=== PATIENT | female | born 1960 | race Caucasian/White ===

== ENCOUNTER 2021-03-06 17:18 | Emergency (ER) | payer MEDICARE, SELFPAY ==
[2021-03-06] VITALS (10 sets, daily range): BP systolic 66–253; BP diastolic 22–140; PULSE 63–131; RESP 10–45; TEMP 2.9–37.4; O2SAT 32–96; BMI 35.8
[2021-03-06] MEDS: Etomidate 20 MG/10 ML Vial IV (17:28)
[2021-03-06] MEDS: Rocuronium Bromide 50 MG/5 ML Vial 100 MG IV (17:29)
--- NOTE | 2021-03-06 17:30 | CM.ED ---
SOCIAL WORK Code Blue Responded to Code Andrea. No family present, this worker to remain available. Lalita Goss, PRODUCTION MANAGER, SECURITY POLICE OFFICER
--- NOTE | 2021-03-06 17:43 | CT_ITS ---
STUDY: CT BRAIN WITHOUT CONTRAST REASON FOR EXAM: Female, 60 years old. Altered mental status RADIATION DOSAGE (If Supplied By Facility): CTDIvol = ( 44.99 ) mGy, DLP = ( 796.11 ) mGycm TECHNIQUE: Transaxial CT imaging of the brain was performed without administration of intravenous contrast material. Individualized dose optimization techniques were used for this CT. COMPARISON: No relevant priors. FINDINGS: Normal soft tissue structures. Normal calvarium. Normal size ventricles and extra-axial spaces for the patient''s age. Normal white matter tracts of the cerebral hemispheres. Normal basal ganglia and thalami. Normal brainstem. Normal cerebellum. There is no intracranial hemorrhage. There are no findings of an acute ischemic infarction. Normal visualized paranasal sinuses. CT/Brain/Head without Contrast IMPRESSION: No acute intracranial process. Electronically Signed: Sindi Hollis MD at 18:41 EST Tel , Service support ,
--- NOTE | 2021-03-06 17:44 | EKG12_ITS ---
Test Reason : DYSRHYTHMIA Blood Pressure : / mmHG Vent. Rate : 113 BPM Atrial Rate : 113 BPM P-R Int : 130 ms QRS Dur : 098 ms QT Int : 364 ms P-R-T Axes : 026 016 -29 degrees QTc Int : 499 ms Sinus tachycardia with Premature atrial complexes Inferior infarct , age undetermined Abnormal ECG Confirmed by FRITZ GUERIN, BONI ([id number]), editor managing director CARMEN TABARES ([id number]) on 03/08/2021 10:15:01 AM Referred By: Confirmed By:BONI HU MD
--- NOTE | 2021-03-06 17:50 | RAD_ITS ---
STUDY: X-RAY CHEST REASON FOR EXAM: Female, 60 years old. INTUBATION -- #2 TECHNIQUE: Frontal portable view of the chest COMPARISON: Earlier same day FINDINGS: Endotracheal tube has been retracted and is now 1 7 m from the brianne. A radiation is improved. However, there is diffuse bilateral lung disease. Gastric tube has been advanced into the stomach. There is no pneumothorax or effusions. Cardiac size is normal. RAD/Chest 1 View (Portable) IMPRESSION: Repositioning of endotracheal tube, 1 cm from the brianne. Diffuse lung disease, likely pneumonia/ARDS. Electronically Signed: Elizabeth Elias MD at 19:32 EST Tel , Service support ,
--- NOTE | 2021-03-06 17:50 | RAD_ITS ---
STUDY: X-RAY CHEST REASON FOR EXAM: Female, 60 years old. intubation -- #1 TECHNIQUE: Frontal portable view of the chest COMPARISON: None. FINDINGS: Endotracheal tube enters 1.2 cm into the right bronchus. Pulmonary volumes are low. Lungs are diffusely opacified. Gastric tube terminates in the mid esophagus. RAD/Chest 1 View (Portable) IMPRESSION: 1. Endotracheal tube in the right bronchus, recommend retraction by 4 cm. 2. Gastric tube in the mid to distal esophagus. Recommend advancement by 50 cm. 3. Diffuse severe lung disease, likely pulmonary edema/pneumonia. Electronically Signed: Elizabeth Elias MD at 19:24 EST Tel , Service support ,
[2021-03-06] MEDS: 0.9% Normal Saline 1,000 ML 250 ML IV (17:51)
[2021-03-06] MEDS: 0.9% Normal Saline 1,000 ML 1000 ML IV (17:51)
[2021-03-06 17:54] LABS: Hematocrit 52.1 % (37-47); Hemoglobin 16.5 g/dL (12.0-15.0); Mean Corp Hgb Conc 31.7 g/dL (32-36); Mean Corpuscular Hgb 28.9 pg (27.0-32.0); Mean Corpuscular Volume 91.2 fL (81-99); Mean Platelet Vol. 10.7 fl (6.2-12.0); POSITIVE COUNT YES; POSITIVE DIFFERENTIAL YES; POSITIVE MORPHOLOGY YES; Platelet Count 524 K/mm3 (150-450); RBC Distribution Width CV 14.8 % (11.6-14.6); RBC Distribution Width SD 49.7 fl (35.1-43.9); Red Blood Count 5.71 M/mm3 (4.2-5.4); White Blood Count 21.9 K/mm3 (4.4-11.0)
[2021-03-06 17:57] LABS: Bacteria 0 SEEN /hpf (None Seen); Squamous Epithelial Cells - UA 0 SEEN /hpf (5-10); White Blood Cells 0 SEEN /hpf (0-5)
--- NOTE | 2021-03-06 17:57 | CPS ---
critical value on ABG. Dr. Gaines notified of critical value
[2021-03-06 17:58] LABS: Differential Indicated MANUAL DIFF
[2021-03-06 18:01] LABS: Allen Test Positive; Base Excess -13 mmol/L (-2 to +2); Bicarbonate 15.3 mmol/L (22-26); Blood Gas Specimen Type ART; O2 Delivery Device Bagging; PO2 250 mmHG (75-100); SITE R Radial; SO2 100 % (95-99); Total Carbon Dioxide 17 mmol/L; pCO2 42.2 mmHg (35-45); pH 7.17 (7.35-7.45)
[2021-03-06 18:11] LABS: Color, Urine Yellow (Yellow); Glucose, Dipstick Normal (Normal); Ketone-Dipstick 5 mg/dl (Negative); Leukocyte Esterase-Dipstick Negative /ul (Negative); Nitrite-Dipstick Negative (Negative); Occult Blood-Urine 25 /ul (Negative); Protein-Dipstick 100 mg/dl (Negative); Urine Bilirubin Dipstick Negative (Negative); Urine Clarity Clear (Clear); Urine Urobilinogen Normal (Normal)
[2021-03-06 18:11] LABS: Alcohol, Blood (Medical)-Serum < 3.0 mg/dL
[2021-03-06 18:13] LABS: Lactic Acid 8.8 mmol/L (0.4-1.9)
[2021-03-06 18:25] LABS: ALB/GLOB Ratio 0.5 RATIO (0.9-2.4); AST(SGOT) 119 U/L (15-37); Alanine Aminotransfer ALT/SGPT 56 U/L (13-56); Albumin, Serum 2.9 g/dL (3.2-5.0); Alkaline Phosphatase 94 U/L (45-117); Anion Gap 17 (5-15); BUN 99 mg/dL (7-18); BUN/Creat Ratio 25.4 RATIO (10-20); Calcium,Total 9.6 mg/dL (8.5-10.1); Chloride 113 mmol/L (98-107); EST Glomerular Filtration Rate 12 mL/min (>60); Est Glom Filt Rate - Afr Amer 15 mL/min (>60); Estimated Creatinine Clearance 11.83 ml/min; Globulin 6.3 g/dL (2.2-4.2); Glucose 258 mg/dL (74-106); Lipase 220 U/L (73-393); Magnesium 4.3 mg/dL (1.6-2.6); Potassium 3.6 mmol/L (3.5-5.1); Protein, Total 9.2 g/dL (6.4-8.2); Sodium Level 150 mmol/L (136-145); Thyroid Stim Hormone (TSH) 1.18 uIU/mL (0.358-3.74)
[2021-03-06 18:28] LABS: Troponin-I HS 183 pg/mL (3.0-54.0)
[2021-03-06 18:29] LABS: Lymphocyte 23 % (19-41); Metamyelocyte 2 % (0-1); Monocyte 5 % (0-10); Myelocyte 3 % (0-0); Neutrophil-Band 2 % (0-5); Neutrophil-Segmented 65 % (47-70); Total Cells Counted 100 (MANUAL DIFF)
[2021-03-06 18:30] LABS: Absolute Neutrophil Count 14.7 X10^3/uL (2.0-7.7); Platelet Estimate ADEQUATE (ADEQ); Reactive Lymphocyte 1+; Red Cell Morphology NORM C+C NORMAL (NORM C&C)
[2021-03-06 18:31] LABS: Absolute Lymphocyte Count 5.04 X10^3/uL (0.83-4.51)
[2021-03-06 18:37] LABS: Amphetamine Urine VISTA NEGATIVE (<1000 ng/mL); Barbiturate Urine VISTA NEGATIVE (< 200 ng/mL); Benzodiazepine Urine VISTA NEGATIVE (< 200 ng/mL); Cocaine Urine VISTA NEGATIVE (< 300 ng/mL); Ecstacy Urine VISTA NEGATIVE (< 500 ng/mL); Methadone Urine VISTA NEGATIVE (< 300 ng/mL); PCP Urine VISTA NEGATIVE (< 25 ng/mL); THC Urine VISTA NEGATIVE (< 50 ng/mL)
[2021-03-06] MEDS: 0.9% Normal Saline 1,000 ML 999 ML IV (18:37)
[2021-03-06 18:40] LABS: Mucous, Urine 1+ /hpf (<or=2+); Red Blood Cells-Urine 0-5 SEEN /hpf (0-5)
[2021-03-06 18:41] LABS: Vista UDS pH Range 5
[2021-03-06 18:43] LABS: BNP,B-Type NATRIURETIC PEPTIDE 179.7 pg/mL (0-100)
[2021-03-06 18:58] LABS: Prothrombin Time (Protime)PT. 21.5 SECONDS (11.7-14.9)
[2021-03-06 18:59] LABS: Partial Thromboplast Time 43.6 Seconds (24.1-36.2)
--- NOTE | 2021-03-06 19:40 | EX.ED.DYSGE1 ---
HPI History of Present Illness Chief Complaint: Alt LOC Narrative Narrative: 60-year-old female presenting with acute respiratory failure via EMS. Reportedly no one has seen the patient for about 4 days. 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 Please recall the entry of the residents to find her on the couch. Patient has her eyes open and will turn her head yes and no. She can however not speak. She has never been to this facility before [facility] Medical History unable to obtain Allergy/AdvReac Type Severity Reaction Status Date / Time Unable to Assess Allergy Verified 03/06/21 18:28 Family History unable to obtain Surgical History unable to obtain unable to obtain Social History (Updated 03/06/21 @ 19:[address] 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 current gender identity: female Smoking Status: Unknown if ever smoked ROS ROS ED Review of Systems ROS Unobtainable: due to mental status EXAM Physical Exam Narrative Exam Narrative: Patient is in obvious distress Const Vital Signs: 03/06/21 17:19 03/06/21 17:27 03/06/21 17:32 Temperature 96.6 F L 97.6 F L Temperature [2] Temperature [3] Temperature Source Temporal Temporal Pulse Rate 114 H 109 H 63 Pulse Rate [2] Pulse Rate [3] Respiratory Rate 45 H 40 H 18 Respiratory Rate [2] Respiratory Rate [3] Respiratory Effort Respiratory Pattern Blood Pressure 124/79 H 124/79 H 90/43 L Blood Pressure [2] Blood Pressure [3] Blood Pressure Mean 94 94 58 Pulse Ox 67 40 32 Oxygen Delivery Method Non-Rebreather Non-Rebreather Non-Rebreather Fraction of Inspired Oxygen (FIO2) 03/06/21 17:35 03/06/21 17:42 03/06/21 17:49 Temperature Temperature [2] Temperature [3] Temperature Source Pulse Rate 105 H Pulse Rate [2] Pulse Rate [3] Respiratory Rate 10 L Respiratory Rate [2] Respiratory Rate [3] Respiratory Effort Short of Breath Labored Mechanically Ventilated Respiratory Pattern Normal Tachypnea Blood Pressure Blood Pressure [2] Blood Pressure [3] Blood Pressure Mean Pulse Ox 93 Oxygen Delivery Method Mechanical Ventilator Fraction of Inspired Oxygen (FIO2) 100 03/06/21 17:53 03/06/21 17:55 03/06/21 18:01 Temperature 99.1 F 99.2 F H Temperature [2] Temperature [3] Temperature Source Core Core Pulse Rate 131 H 128 H Pulse Rate [2] Pulse Rate [3] Respiratory Rate 36 H 10 L Respiratory Rate [2] Respiratory Rate [3] Respiratory Effort Short of Breath Labored Respiratory Pattern Tachypnea Blood Pressure 139/83 H 128/83 H Blood Pressure [2] Blood Pressure [3] Blood Pressure Mean 101 98 Pulse Ox 80 57 Oxygen Delivery Method Mechanical Ventilator Mechanical Ventilator Fraction of Inspired Oxygen (FIO2) 03/06/21 18:06 03/06/21 18:44 03/06/21 19:00 Temperature 99.4 F H Temperature [2] Temperature [3] Temperature Source Core Pulse Rate 122 H 109 H Pulse Rate [2] Pulse Rate [3] Respiratory Rate 16 14 Respiratory Rate [2] Respiratory Rate [3] Respiratory Effort Respiratory Pattern Blood Pressure 128/93 H 66/44 L Blood Pressure [2] Blood Pressure [3] Blood Pressure Mean 104 51 Pulse Ox 93 Oxygen Delivery Method Mechanical Ventilator Mechanical Ventilator Mechanical Ventilator Fraction of Inspired Oxygen (FIO2) 03/06/21 19:02 03/06/21 19:17 Temperature Temperature [2] 99.0 F 99.0 F Temperature [3] 99.1 F 37.2 F L Temperature Source Pulse Rate Pulse Rate [2] 112 H Pulse Rate [3] 130 H 107 H Respiratory Rate 14 Respiratory Rate [2] 14 Respiratory Rate [3] 14 14 Respiratory Effort Respiratory Pattern Blood Pressure 158/140 H Blood Pressure [2] 158/140 H 150/22 H Blood Pressure [3] 253/113 H 105/68 Blood Pressure Mean Pulse Ox Oxygen Delivery Method Mechanical Ventilator Mechanical Ventilator Fraction of Inspired Oxygen (FIO2) Positive well nourished, well developed and obese General Appearance ED: well developed Nutritional Appearance: obese HEENT Reports normocephalic, head/scalp atraumatic and dry mucous membranes HEENT Narrative: The teeth appear to be stuck together once opened the tongue is stuck to the roof of her mouth. Negative for trauma Mouth ED: Yes dry mucous membranes Mouth: dry mucous membranes Eyes PERRL and EOMs intact bilaterally Eyes Narrative: Patient appears to have exophthalmos Neck no lymphadenopathy, supple and no JVD Resp clear to auscultation bilaterally Resp Narrative: Patient is tachypneic Auscultation: diminished lung sounds Cardio regular rate and no murmurs Rate: tachycardic GI normal to inspection, nondistended, normoactive bowel sounds and non-tender Palpation: soft Back/Spine no CVA tenderness and normal ROM Extremity normal to inspection General Extremety ED: Negative for edema General Extremity: Negative for edema Neuro Neuro Narrative: Patient will wiggle her toes on command and squeeze her her hand with the appropriate side Sensorium / Orientation: alert Skin no rashes or lesions noted and no wounds MDM MDM MDM Narrative Medical decision making narrative: Patient's pulse ox was significantly low with some readings around 13%. Decision to intubate the patient was made immediately the patient underwent RSI using etomidate and rocuronium. The mouth was severely dry necessitating use of some sterile saline to help moisten to visualize the cords. Using the glide scope and 8-0 endotracheal tube was placed and secured at 24 cm. Later this was pulled to 20 cm after looking at the x-ray. After intubation the patient became bradycardic and eventually went to asystole. Epinephrine was administered as well as CPR. This resulted in a sinus tachycardia. Patient was taken to head CT which was negative. My interpretation of the chest x-ray is diffuse pulmonary edema with the endotracheal tube 1 cm above the brianne. White count returns at 21.9 hemoglobin 16.5. Platelet count of 524. BUN of 99 with a creatinine of 3.9. Sodium of 150 troponin 183. Lactic acid is 8.8 pH 7.16 with a PCO2 of 42 and a PO2 of 250 HCO3 15.3. A couple more times the patient became bradycardic and lost her pulse and CPR was started. Please see nurse see documentation for complete details. A right IJ central line was placed using ultrasound guidance and the modified Seldinger technique. This was placed without any difficulty on the first attempt. It was secured in place. Unfortunately the patient coded again before we could get a chest x-ray to prove placement. The patient eventually became bradycardic and lost her pulse and went into asystole. She was pronounced . Later we find out that the patient has been in and Covid quarantine and the patient is test Covid positive. I suspect that the patient was quite sick at home and became significantly hypoxic and dehydrated. Lab Data Attestation: I reviewed the patient's lab results. Labs: Laboratory Results - last 24 hr 03/06/21 03/06/21 03/06/21 17:31 17:31 17:31 WBC 21.9 H RBC 5.71 H Hgb 16.5 H Hct 52.1 H MCV 91.2 MCH 28.9 MCHC 31.7 L RDW Std Deviation 49.7 H RDW Coeff of Black 14.8 H Plt Count 524 H MPV 10.7 Neut % (Auto) Not Reportable Absolute Neuts (auto) 14.7 H Absolute Lymphs (auto) 5.04 H Total Counted 100 Neutrophils % (Manual) 65 Band Neutrophils % 2 Lymphocytes % (Manual) 23 Monocytes % (Manual) 5 Metamyelocytes % 2 H Myelocytes % 3 H Diff Path Review May foll Reactive Lymphocytes 1+ Platelet Estimate ADEQUATE RBC Morphology NORM C+C PT INR APTT Sodium 150 H Potassium 3.6 Chloride 113 H Carbon Dioxide 20.0 L Anion Gap 17 H BUN 99 H Creatinine 3.90 H Estim Creat Clear Calc 11.83 Est GFR (MDRD) Af Amer 15 L Est GFR (MDRD) Non-Af 12 L BUN/Creatinine Ratio 25.4 H Glucose 258 H Lactic Acid Calcium 9.6 Magnesium 4.3 H Total Bilirubin 1.20 H AST 119 H ALT 56 Alkaline Phosphatase 94 Troponin I High Sens 183 H* B-Natriuretic Peptide Total Protein 9.2 H Albumin 2.9 L Globulin 6.3 H Albumin/Globulin Ratio 0.5 L Lipase 220 TSH 1.18 Urine Color Urine Clarity Urine pH Ur Specific [place] Urine Protein Urine Glucose (UA) Urine Ketones Urine Occult Blood Urine Nitrite Urine Bilirubin Urine Urobilinogen Ur Leukocyte Esterase Urine RBC Urine WBC Ur Squamous Epith Cells Urine Bacteria Urine Mucus Urine Opiates Screen Urine Methadone Screen Ur Barbiturates Screen Ur Phencyclidine Scrn Ur Amphetamines Screen U Methamphetamin-MDMA U Benzodiazepines Scrn Urine Cocaine Screen U Cannabinoids Screen Ur Drug Screen Comment Ethyl Alcohol < 3.0 03/06/21 03/06/21 03/06/21 17:31 17:31 17:45 WBC RBC Hgb Hct MCV MCH MCHC RDW Std Deviation RDW Coeff of Black Plt Count MPV Neut % (Auto) Absolute Neuts (auto) Absolute Lymphs (auto) Total Counted Neutrophils % (Manual) Band Neutrophils % Lymphocytes % (Manual) Monocytes % (Manual) Metamyelocytes % Myelocytes % Diff Path Review Reactive Lymphocytes Platelet Estimate RBC Morphology PT INR APTT Sodium Potassium Chloride Carbon Dioxide Anion Gap BUN Creatinine Estim Creat Clear Calc Est GFR (MDRD) Af Amer Est GFR (MDRD) Non-Af BUN/Creatinine Ratio Glucose Lactic Acid 8.8 H* Calcium Magnesium Total Bilirubin AST ALT Alkaline Phosphatase Troponin I High Sens B-Natriuretic Peptide 179.7 H Total Protein Albumin Globulin Albumin/Globulin Ratio Lipase TSH Urine Color Yellow Urine Clarity Clear Urine pH 5.0 Ur Specific [place] 1.020 Urine Protein 100 H Urine Glucose (UA) Normal Urine Ketones 5 H Urine Occult Blood 25 H Urine Nitrite Negative Urine Bilirubin Negative Urine Urobilinogen Normal Ur Leukocyte Esterase Negative Urine RBC 0-5 SEEN Urine WBC 0 SEEN Ur Squamous Epith Cells 0 SEEN Urine Bacteria 0 SEEN Urine Mucus 1+ Urine Opiates Screen Urine Methadone Screen Ur Barbiturates Screen Ur Phencyclidine Scrn Ur Amphetamines Screen U Methamphetamin-MDMA U Benzodiazepines Scrn Urine Cocaine Screen U Cannabinoids Screen Ur Drug Screen Comment Ethyl Alcohol 03/06/21 03/06/21 03/06/21 17:45 18:00 18:40 WBC RBC Hgb Hct MCV MCH MCHC RDW Std Deviation RDW Coeff of Black Plt Count MPV Neut % (Auto) Absolute Neuts (auto) Absolute Lymphs (auto) Total Counted Neutrophils % (Manual) Band Neutrophils % Lymphocytes % (Manual) Monocytes % (Manual) Metamyelocytes % Myelocytes % Diff Path Review Reactive Lymphocytes Platelet Estimate RBC Morphology PT Cancelled 21.5 H INR Cancelled 2.0 APTT Cancelled 43.6 H Sodium Potassium Chloride Carbon Dioxide Anion Gap BUN Creatinine Estim Creat Clear Calc Est GFR (MDRD) Af Amer Est GFR (MDRD) Non-Af BUN/Creatinine Ratio Glucose Lactic Acid Calcium Magnesium Total Bilirubin AST ALT Alkaline Phosphatase Troponin I High Sens B-Natriuretic Peptide Total Protein Albumin Globulin Albumin/Globulin Ratio Lipase TSH Urine Color Urine Clarity Urine pH Ur Specific [place] Urine Protein Urine Glucose (UA) Urine Ketones Urine Occult Blood Urine Nitrite Urine Bilirubin Urine Urobilinogen Ur Leukocyte Esterase Urine RBC Urine WBC Ur Squamous Epith Cells Urine Bacteria Urine Mucus Urine Opiates Screen NEGATIVE Urine Methadone Screen NEGATIVE Ur Barbiturates Screen NEGATIVE Ur Phencyclidine Scrn NEGATIVE Ur Amphetamines Screen NEGATIVE U Methamphetamin-MDMA NEGATIVE U Benzodiazepines Scrn NEGATIVE Urine Cocaine Screen NEGATIVE U Cannabinoids Screen NEGATIVE Ur Drug Screen Comment Ethyl Alcohol ABG Data ABG results: ABG 03/06/21 17:57 Specimen Type ART Sample Site R Radial pH 7.17 L* Bicarbonate Actual 15.3 L Total CO2 17 Base Excess -13 L O2 Saturation 100 H ABG pCO2 42.2 ABG pO2 250 H Walter Test Positive O2 Delivery Device Bagging Liter Flow 15.0 Crit Call To/Read Back Yes Radiography Diagnostic Testing: Clinical Impression(s) from Imaging Studies Brain CT 03/06/21 17:43 IMPRESSION: No acute intracranial process. Electronically Signed: Sindi Hollis MD at 18:41 EST Tel , Service support , Chest X-Ray 03/06/21 17:50 IMPRESSION: 1. Endotracheal tube in the right bronchus, recommend retraction by 4 cm. 2. Gastric tube in the mid to distal esophagus. Recommend advancement by 50 cm. 3. Diffuse severe lung disease, likely pulmonary edema/pneumonia. Electronically Signed: Elizabeth Elias MD at 19:24 EST Tel , Service support , Chest X-Ray 03/06/21 17:50 IMPRESSION: Repositioning of endotracheal tube, 1 cm from the brianne. Diffuse lung disease, likely pneumonia/ARDS. Electronically Signed: Elizabeth Elias MD at 19:32 EST Tel , Service support , EKG Initial EKG: Attestation: I personally reviewed and interpreted this EKG as follows: Comments: Sinus tachycardia with a ventricular rate of 113 bpm noted PACs Critical Care Time Critical Care Time: Yes Critical care time (excluding procedures): 30-74 minutes (35 min), Including time spent:, Discussing w/Patient &/or Family/Signal Worker Helper and Performing Direct Patient Care at Bedside Discharge Plan Triage Chief Complaint: Alt LOC ED Provider: Francisco Gaines Dx/Rx/DC Orders Clinical Impression: Acute hypoxemic respiratory failure, Cardiac arrest, Metabolic acidosis, COVID-19, Acute renal failure, Acute dehydration Primary Care Provider: Care Physician,No Primary Referrals: Care Physician,No Primary [Primary Care Provider] - Disposition Disposition: Discharge Date/Time: 03/06/21 21:03 Date/Time: 03/06/21 19:43
--- NOTE | 2021-03-06 19:45 | CM.ED ---
Patient . Call to patient's friend, Ana Marshall to obtain information on family. Ana reports was a student of patient's and believes patient to have a brother and sister who reside in [place]. Ana states believes brother's name to be Gopi Schmid who resides in [facility]. Staff and HRO Rolando trevizo. Lalita Goss, ASSEMBLER STEAM AND GAS [employer]URBINE, INSURANCE FOLLOW UP REP
--- NOTE | 2021-03-06 20:43 | ED.RN ---
time of [address]. called [address] Dr[address] Gaines. lin manzano rn
[2021-03-06 21:48] LABS: Reflex Lactate? Y
[2021-03-09 09:30] LABS: Pathologist Review Reviewed
== END 2021-03-06 21:03 ==
PROVIDERS: Emergency Provider Emergency Medicine
DX: U07.1 COVID-19 (principal); J96.01 Acute respiratory failure with hypoxia; I46.9 Cardiac arrest, cause unspecified; E86.0 Dehydration; N17.9 Acute kidney failure, unspecified; E87.2 Acidosis
CPT/HCPCS: 31500; 36556; 36600; 51702; 70450; 71045; 80053; 80307; 81001; 82077; 82803; 83605; 83690; 83735; 83880; 84443; 84484; 85025; 85610; 85730; 87426; 92950; 93005; 94002; 96365; 96375; 99285; J7030; J7050; A4216; J3490